=== PATIENT | female | born 1975 ===

== ENCOUNTER 2016-09-22 09:00 | Observation (INO) | payer BC, MEDICAID ==
[2016-09-22 09:01] VITALS: BMI 21.2
[2016-09-22] MEDS ORDERED: Sodium Chloride 0.9% 1,000 ML IV ONE (09:39)
[2016-09-22] MEDS ORDERED: Sodium Chloride 0.9% 1,000 ML ONE (09:42)
[2016-09-22] MEDS ORDERED: Morphine 4 MG/ML VIAL ONE ×2 (09:42→15:27)
--- NOTE | 2016-09-22 09:42 | C.PDOC ---
History Of Present Illness 41 y/o female presents to ED right c/o right flank pain, radiating to RLQ abdomen, for 3 days. Patient states that pain was much more severe when she woke up this morning, and now associated with nausea and vomiting. Denies any history of similar symptoms in the past. Denies fever, diarrhea, travel, or trauma. Denies GI bleeding. Time Seen by Provider: 09/22/16 09:38 Chief Complaint (Nursing): Back Pain History Per: Patient History/Exam Limitations: no limitations Onset/Duration Of Symptoms: Days Current Symptoms Are (Timing): Worse Quality Of Discomfort: "Pain" Previous Symptoms: None Associated Symptoms: None Recent travel outside of the [place]: No Past Medical History Reviewed: Historical Data, Nursing Documentation, Vital Signs Vital Signs: Last Vital Signs Temp 98.3 F 09/22/16 15:24 Pulse 71 09/22/16 15:24 Resp 20 09/22/16 15:24 BP 105/63 09/22/16 15:24 Pulse Ox 100 09/22/16 15:24 - Medical History PMH: Anemia, Asthma, Colonic Polyps, Gastritis, Gastrointestinal Ulcer, Gall Bladder Disease, Migraine Surgical History: Cholecystectomy, Endoscopy, (x4) - [facility] Procedures CLOSED ENDOSCOPIC BIOPSY OF LARGE INTESTINE (08/18/12) ESOPHAGOGASTRODUODENOSCOPY [EGD] W/CLOSED BIOPSY (08/31/14) PACKED CELL TRANSFUSION (08/18/12) PERCUTANEOUS ABDOMINAL DRAINAGE (10/22/14) REPAIR ABDOMEN SUBCUTANEOUS TISSUE AND FASCIA, OPEN APPROACH (02/17/15) Family History: States: Unknown Family Hx - Social History Hx Tobacco Use: No Hx Alcohol Use: No Hx Substance Use: No - Immunization History Hx Tetanus Toxoid Vaccination: No Hx Influenza Vaccination: No Hx Pneumococcal Vaccination: No Review Of Systems Except As Marked, All Systems Reviewed And Found Negative. Constitutional: Negative for: Fever, Chills Cardiovascular: Negative for: Chest Pain Respiratory: Negative for: Cough, Shortness of Breath Gastrointestinal: Positive for: Nausea, Vomiting, Abdominal Pain (right flank). Negative for: Diarrhea Genitourinary: Negative for: Dysuria, Hematuria Skin: Negative for: Rash Physical Exam - Physical Exam Appears: Non-toxic, No Acute Distress Skin: Normal Color, Warm, Dry Head: Atraumatic, Normacephalic Oral Mucosa: Moist Neck: Supple Chest: Symmetrical Cardiovascular: Rhythm Regular, No Murmur Respiratory: Normal Breath Sounds, No Rales, No Rhonchi, No Wheezing Gastrointestinal/Abdominal: Soft, No Tenderness, No Distention, No Guarding Back: CVA Tenderness (moderate, right sided) Extremity: Normal ROM Neurological/Psych: Oriented x3, Normal Speech, Normal Cognition ED Course And Treatment - Laboratory Results Result Diagrams: 09/22/16 09:46 09/22/16 09:46 ED OBSERVATION Discharge: Yes Date of observation admission: 09/22/16 Time of observation admission: 13:00 - Observation admission statement Patient is being placed in observation because:: abdominal pain, vomiting - Goals of Observation Goals of observation are:: observing and treatment for abdominal pain and vomiting - Progress Note Progress Note: At 1300, the patient reports that the pain has improved but still has nausea. Reglan ordered. 1500 the patient reports that the pain has returned. Morphine 4mg given. The results were discussed with the patient about the anemia and hypokalemia. Patient was instructed to stay in the hospital for possible transfusion but refuses admission at this time. 09/22/16 16:10 On re-exam, the patient reports improvement of symptoms. Lungs are CTA, heart is RRR, abdomen is soft, non-tender and patient is tolerating PO well. Ambulatory in the ED with steady gait. Follow up with the medical doctor within 1-2 days. Return if worsened. - PA / HEALTH AND WELLNESS INSTRUCTOR / Resident Statement MD/DO has reviewed & agrees with the documentation as recorded. - Scribe Statement The provider has reviewed the documentation as recorded by the Kory Damon All medical record entries made by the Kory were at my direction and personally dictated by me. I have reviewed the chart and agree that the record accurately reflects my personal performance of the history, physical exam, medical decision making, and the department course for this patient. I have also personally directed, reviewed, and agree with the discharge instructions and disposition.
[2016-09-22 09:52] LABS: BASO # 0.1 K/uL (0.0-0.2); BASO % 0.8 % (0.0-2.0); EOS % 0.4 % (0.0-4.0); HEMATOCRIT 27.1 % (34.0-47.0); LYMPH # 1.5 K/uL (1.0-4.3); LYMPH % 20.8 % (20.0-40.0); MEAN CORPUSCULAR HEMOGLOBIN 15.6 pg (27.0-31.0); MEAN CORPUSCULAR HGB CONC 27.8 g/dL (33.0-37.0); MEAN PLATELET VOLUME 8.5 fL (7.2-11.7); MONO # 0.3 K/uL (0.0-0.8); MONO % 3.6 % (0.0-10.0); NRBC % 0.1 % (0.0-2.0); RED CELL DISTRIBUTION WIDTH 24.2 % (11.5-14.5); WHITE BLOOD COUNT 7.2 K/uL (4.8-10.8)
[2016-09-22 10:00] LABS: MEAN CELL VOLUME 56.2 fL (81.0-99.0)
[2016-09-22 10:03] LABS: CHLORIDE 102 mmol/L (98-107); POTASSIUM 3.1 mmol/L (3.6-5.2); SODIUM 141 mmol/L (132-148)
[2016-09-22 10:05] LABS: ALB/GLOB RATIO 1.3 (1.0-2.1); ALKALINE PHOSPHATASE 114 U/L (38-126); AST/SGOT 23 U/L (14-36); BILIRUBIN,TOTAL 0.9 mg/dL (0.2-1.3); BLOOD UREA NITROGEN 10 mg/dL (7-17); CARBON DIOXIDE 26 mmol/L (22-30); GFR AFRICAN-AMERICAN > 60; TOTAL PROTEIN 7.6 g/dL (6.3-8.3)
[2016-09-22 10:06] LABS: ALT/SGPT 14 U/L (9-52); CALCIUM 8.9 mg/dl (8.6-10.4); GLUCOSE,RANDOM 99 mg/dL (65-105)
[2016-09-22 10:45] VITALS: O2SAT 100
[2016-09-22 12:32] LABS: RBC URINE 303 /hpf (0-3); URINE BILIRUBIN NEGATIVE (NEGATIVE); URINE BLOOD 3+ (NEGATIVE); URINE COLOR Yellow (YELLOW); URINE GLUCOSE (UA) NORMAL (Normal); URINE KETONE 2+ mg/dL (NEGATIVE); URINE PROTEIN 1+ mg/dL (NEGATIVE); URINE UROBILINOGEN NORMAL mg/dL (0.2-1.0); WBC URINE 14 /hpf (0-5)
[2016-09-22 12:35] LABS: URINE LEUKOCYTE ESTERASE 1+ Leu/uL (Negative)
--- NOTE | 2016-09-22 13:53 | CT ---
PROCEDURE: CT Abdomen and Pelvis without Oral or IV contrast. HISTORY: RT FLANK PAIN , R/O STONE COMPARISON: CT abdomen and pelvis with contrast performed 11/25/15 TECHNIQUE: Contiguous axial images of the abdomen and pelvis. No oral or IV contrast administered. Coronal and Sagittal reformats generated and reviewed. Radiation dose: Total exam DLP = 273.27 mGy-cm. This CT exam was performed using one or more of the following dose reduction techniques: Automated exposure control, adjustment of the mA and/or kV according to patient size, and/or use of iterative reconstruction technique. FINDINGS: There is limited evaluation of the solid organs without the administration of IV contrast. LOWER THORAX: No visible consolidation, pleural effusion, or pneumothorax. LIVER: Hepatomegaly. GALLBLADDER AND BILE DUCTS: Cholecystectomy clips. PANCREAS: Limited visualization. Grossly unremarkable unenhanced appearance. SPLEEN: Unremarkable unenhanced appearance. ADRENALS: Unremarkable unenhanced appearance. KIDNEYS AND URETERS: No hydronephrosis or obstructing renal calculus. 7 mm hyperdense left midpole renal lesion. Nonobstructing 3 mm and 2 mm left renal calculi. Nonobstructing 2 mm right renal calculus. BLADDER: Under distention of the urinary bladder limits evaluation. REPRODUCTIVE: Uterus is present. APPENDIX: No secondary signs of acute appendicitis. BOWEL: Postsurgical gastric changes consistent with gastric bypass. Lack of oral contrast limits evaluation for bowel pathology. Bowel loops appear within normal limits of caliber without evidence of obstruction. Anastomotic bowel suture material in the left abdomen. PERITONEUM: No significant free fluid. No definite free air. LYMPH NODES: No bulky lymphadenopathy identified. VASCULATURE: Limited visualization. Grossly unremarkable unenhanced appearance of the aorta. BONES: No acute osseous abnormality is detected. OTHER FINDINGS: None. IMPRESSION: Limited study. Hepatomegaly. Cholecystectomy. Evidence of prior gastric surgery consistent with gastric bypass. Suture material involving bowel in a left abdomen. 7 mm hyperdense left midpole renal lesion, indeterminate. Suggest renal ultrasound for further evaluation if indicated. Nonobstructing 3 mm and 2 mm left renal calculi. 2 mm nonobstructing right renal calculus. No hydronephrosis.
[2016-09-22 15:25] VITALS: RESP 20
[2016-09-22 16:38] VITALS: BP 104/65; PULSE 75; TEMP 98.6
== END 2016-09-22 16:12 | disposition home or self-care (01) ==
LOC: C.ER 09:00 → C.9OBSV 12:44
PROVIDERS: ADMIT Emergency Medicine; ATTEND Emergency Medicine
DX: R10.31 Right lower quadrant pain (principal); R11.10 Vomiting, unspecified; Z86.010 Personal history of colon polyps
CPT/HCPCS: 74176; 80053; 81001; 83690; 84703; 85025; 96360; 96374; G0378; J1885; J2270; J2405; J2765; J3480; J7040

== ENCOUNTER 2016-09-24 15:16 | Inpatient (IN) | payer BC ==
[2016-09-24 15:17] VITALS: BMI 21.2
[2016-09-24] MEDS ORDERED: Sodium Chloride 0.9% 1,000 ML IV ONE ×2 (16:01→19:48)
[2016-09-24 16:07] LABS: BASO # 0.1 K/uL (0.0-0.2); HEMATOCRIT 24.6 % (34.0-47.0); LYMPH # 2.2 K/uL (1.0-4.3); MEAN PLATELET VOLUME 8.6 fL (7.2-11.7); MONO # 0.4 K/uL (0.0-0.8)
[2016-09-24 16:19] LABS: CHLORIDE 105 mmol/L (98-107); SODIUM 140 mmol/L (132-148)
[2016-09-24 16:20] LABS: POTASSIUM 3.5 mmol/L (3.6-5.2)
[2016-09-24 16:22] LABS: ALB/GLOB RATIO 1.4 (1.0-2.1); ALKALINE PHOSPHATASE 92 U/L (38-126); ALT/SGPT 14 U/L (9-52); AST/SGOT 23 U/L (14-36); BILIRUBIN,TOTAL 0.7 mg/dL (0.2-1.3); BLOOD UREA NITROGEN 10 mg/dL (7-17); CALCIUM 8.7 mg/dl (8.6-10.4); CARBON DIOXIDE 24 mmol/L (22-30); GFR AFRICAN-AMERICAN > 60; GLUCOSE,RANDOM 88 mg/dL (65-105); TOTAL PROTEIN 7.3 g/dL (6.3-8.3)
[2016-09-24 16:29] LABS: RBC URINE 13 /hpf (0-3); URINE BACTERIA RARE (<OCC); URINE BILIRUBIN NEGATIVE (NEGATIVE); URINE BLOOD 2+ (NEGATIVE); URINE COLOR Yellow (YELLOW); URINE GLUCOSE (UA) NORMAL (Normal); URINE KETONE NEGATIVE (NEGATIVE); URINE LEUKOCYTE ESTERASE TRACE Leu/uL (Negative); URINE PROTEIN NEGATIVE (NEGATIVE); WBC URINE 2 /hpf (0-5)
[2016-09-24] MEDS ORDERED: Sodium Chloride 0.9% 1,000 ML ONE (16:31)
[2016-09-24 16:39] LABS: BASO % 1.1 % (0.0-2.0); EOS # 0.2 K/uL (0.0-0.7); EOS % 3.1 % (0.0-4.0); LYMPH % 45.1 % (20.0-40.0); MEAN CELL VOLUME 57.1 fL (81.0-99.0); MEAN CORPUSCULAR HEMOGLOBIN 15.7 pg (27.0-31.0); MEAN CORPUSCULAR HGB CONC 27.5 g/dL (33.0-37.0); MONO % 8.1 % (0.0-10.0); NRBC % 0.4 % (0.0-2.0); RED CELL DISTRIBUTION WIDTH 24.3 % (11.5-14.5); WHITE BLOOD COUNT 4.9 K/uL (4.8-10.8)
--- NOTE | 2016-09-24 17:05 | C.PDOC ---
History Of Present Illness 41-year-old female, presents to the emergency department with complaints of weakness and feeling tired. Patient was seen in ED two days ago with same complaint, and her Hgb was found to be 7.5; Patient refused admission and stated she will f/u with her PMD. Pt seen in Dr Loyola office today, and continues to feel generalized weakness, resulting in her being sent back to ED for evaluation. Patient had a CT done two days ago. Denies nausea, vomiting, symptoms, change in bowel habits, or any other associated symptoms. No other complaints at this time. Pt has a Hx of transfusions in the past. Chief Complaint (Nursing): Abdominal Pain History Per: Patient History/Exam Limitations: no limitations Onset/Duration Of Symptoms: Days Current Symptoms Are (Timing): Still Present Past Medical History Reviewed: Historical Data, Nursing Documentation, Vital Signs Vital Signs: Last Vital Signs Temp 98.3 F 09/24/16 15:23 Pulse 80 09/24/16 15:23 Resp 16 09/24/16 15:23 BP 110/74 09/24/16 15:23 Pulse Ox 96 09/24/16 17:46 - Medical History PMH: Anemia, Asthma, Colonic Polyps, Gastritis, Gastrointestinal Ulcer, Gall Bladder Disease, Migraine Denies: Chronic Kidney Disease Surgical History: Cholecystectomy, Endoscopy, (x4) - [facility] Procedures CLOSED ENDOSCOPIC BIOPSY OF LARGE INTESTINE (08/18/12) ESOPHAGOGASTRODUODENOSCOPY [EGD] W/CLOSED BIOPSY (08/31/14) PACKED CELL TRANSFUSION (08/18/12) PERCUTANEOUS ABDOMINAL DRAINAGE (10/22/14) REPAIR ABDOMEN SUBCUTANEOUS TISSUE AND FASCIA, OPEN APPROACH (02/17/15) Family History: States: No Known Family Hx - Social History Hx Tobacco Use: No Hx Alcohol Use: No Hx Substance Use: No - Immunization History Hx Tetanus Toxoid Vaccination: No Hx Influenza Vaccination: No Hx Pneumococcal Vaccination: No Review Of Systems Except As Marked, All Systems Reviewed And Found Negative. Constitutional: Positive for: Weakness. Negative for: Fever, Chills Genitourinary: Negative for: Dysuria, Frequency, Hematuria, Vaginal Discharge, Vaginal Bleeding Musculoskeletal: Negative for: Back Pain Neurological: Negative for: Headache, Dizziness Physical Exam - Physical Exam Appears: Non-toxic, No Acute Distress Skin: Normal Color, Warm, Dry, No Rash Head: Atraumatic, Normacephalic Eye(s): bilateral: Normal Inspection, PERRL, EOMI Nose: Normal Oral Mucosa: Moist Lips: Normal Appearing Neck: Normal ROM Cardiovascular: Rhythm Regular Respiratory: Normal Breath Sounds, No Accessory Muscle Use Gastrointestinal/Abdominal: Soft, No Tenderness Back: CVA Tenderness (B/L R>L) Extremity: Normal ROM Neurological/Psych: Oriented x3 ED Course And Treatment - Laboratory Results Result Diagrams: 09/24/16 15:56 09/24/16 15:56 O2 Sat by Pulse Oximetry: 96 Disposition - Disposition Disposition Time: 16:45 Condition: STABLE - Clinical Impression Clinical Impression: Anemia - Scribe Statement The provider has reviewed the documentation as recorded by the Scribe (Nadeem Richards) All medical record entries made by the Scribe were at my direction and personally dictated by me. I have reviewed the chart and agree that the record accurately reflects my personal performance of the history, physical exam, medical decision making, and the department course for this patient. I have also personally directed, reviewed, and agree with the discharge instructions and disposition.
[2016-09-24] MEDS ORDERED: Morphine 4 MG/ML VIAL IV STA (17:28)
--- NOTE | 2016-09-24 18:40 | CP.PCM.HP ---
<Shelley Donis - Last Filed: 09/24/16 19:41> History of Present Illness - History of Present Illness History of Present Illness: CC: "Lower back pain on the right, sent by Dr. Leon" HPI: 41-year-old female, presents to the emergency department with complaints of weakness and feeling tired. Patient was seen in ED two days ago with same complaint, and her Hgb was found to be 7.5; Patient refused admission and stated she will f/u with her PMD. Pt seen in Dr Loyola office today, and he told her to come back to the ED for evaluation. She continues to feel generalized weakness. Patient had a CT done two days ago revealed nephrolithiasis without hydronephrosis or obstruction. She stated she has had flank pain and R lower back pain since last Wednesday. She took tramadol to help with the pain. She denies urinary complains or blood in the urine but states she has been menstruating so it is difficult to tell. Denies fever, chills, nausea, vomiting, symptoms, change in bowel habits, or any other associated symptoms. Pt has a Hx of transfusions in the past due to her "GI probs". PMHx: Anemia, Asthma, Gastritis, Gastrointestinal Ulcer, Gall Bladder Disease, Migraine PSHx: cholecystectomy, gastric bypass, ventral hernia, x4 Meds: Xanax, Nexium, tramadol, tylenol Allergies: NKDA Social: denies tobacco/etoh/drugs Famhx: non-contributory PMD: Edward GI: Zia Present on Admission - Present on Admission Any Indicators Present on Admission: No Review of Systems - Constitutional Constitutional: absent: Chills, Fever - EENT Eyes: absent: Blurred Vision, Change in Vision - Cardiovascular Cardiovascular: absent: Chest Pain, Chest Pain at Rest, Palpitations, Syncope - Respiratory Respiratory: absent: Cough, Dyspnea, Dyspnea on Exertion - Gastrointestinal Gastrointestinal: absent: Abdominal Pain, Constipation, Diarrhea, Nausea, Vomiting - Genitourinary Genitourinary: Flank Pain, Voiding Freq/Small Amts. absent: Change in Urinary Stream, Difficulty Urinating, Hematuria, Pyuria, Urinary Incontinence, Bladder Distension - Musculoskeletal Musculoskeletal: absent: Numbness, Tingling - Neurological Neurological: absent: Headaches, Tingling, Weakness Past Patient History - Infectious Disease Hx of Infectious Diseases: None - Past Medical History & Family History Past Medical History?: Yes - Past Social History Smoking Status: Never Smoked - CARDIAC Hx Cardiac Disorders: No - PULMONARY Hx Asthma: Yes - NEUROLOGICAL Hx Migraine: Yes - HEENT Hx HEENT Problems: No - RENAL Hx Chronic Kidney Disease: No - ENDOCRINE/METABOLIC Hx Endocrine Disorders: No - HEMATOLOGICAL/ONCOLOGICAL Hx Anemia: Yes - INTEGUMENTARY Hx Dermatological Problems: No - MUSCULOSKELETAL/RHEUMATOLOGICAL Hx Musculoskeletal Disorders: No Hx Falls: No - GASTROINTESTINAL Hx Gall Bladder Disease: Yes Hx Gastritis: Yes - GENITOURINARY/GYNECOLOGICAL Hx Genitourinary Disorders: No - PSYCHIATRIC Hx Substance Use: No - SURGICAL HISTORY Hx Cholecystectomy: Yes - ANESTHESIA Hx Anesthesia: Yes Hx Anesthesia Reactions: No Hx Malignant Hyperthermia: No Meds Allergies/Adverse Reactions: Allergies Allergy/AdvReac Type Severity Reaction Status Date / Time No Known Allergies Allergy Verified 09/22/16 09:05 Physical Exam - Constitutional Appears: Non-toxic, No Acute Distress - Head Exam Head Exam: ATRAUMATIC, NORMAL INSPECTION - Eye Exam Eye Exam: EOMI, Normal appearance, PERRL Pupil Exam: NORMAL ACCOMODATION Additional comments: Pallor - ENT Exam ENT Exam: Mucous Membranes Moist - Respiratory Exam Respiratory Exam: Clear to Auscultation Bilateral, NORMAL BREATHING PATTERN. absent: Accessory Muscle Use, Rhonchi, Wheezes, Respiratory Distress, Stridor - Cardiovascular Exam Cardiovascular Exam: REGULAR RHYTHM, +S1, +S2 - GI/Abdominal Exam GI & Abdominal Exam: Normal Bowel Sounds, Soft. absent: Distended, Firm, Guarding, Tenderness - Extremities Exam Extremities exam: Positive for: normal inspection. Negative for: calf tenderness, pedal edema - Back Exam Back exam: CVA tenderness (R), NORMAL INSPECTION. absent: CVA tenderness (L), paraspinal tenderness - Neurological Exam Neurological exam: Alert, Normal Gait, Oriented x3 - Psychiatric Exam Psychiatric exam: Normal Affect, Normal Mood - Skin Skin Exam: Dry, Intact, Normal Color, Warm Results - Vital Signs Recent Vital Signs: Last Vital Signs Temp 98.3 F 09/24/16 15:23 Pulse 80 09/24/16 15:23 Resp 16 09/24/16 15:23 BP 110/74 09/24/16 15:23 Pulse Ox 96 09/24/16 18:37 - Labs Result Diagrams: 09/24/16 15:56 09/24/16 15:56 Assessment & Plan - Assessment and Plan (Free Text) Assessment: Anemia Hbg 6.8 2 Units PRBC ordered consent signed and placed in chart Gi consulted, Dr. Lizarraga, help appreciated (as per request of Dr. Bennett) - patient has seen on prior admissions and oupatient MCV - 57.1 f/u anemia workup: iron studies, /, folate, retic count Nephrolithiasis BUN/CR wnl UA 2+ blood, 2urobil, 13 RBC 11SE f/u urine culture f/u blood culture Abd U/S 09/22 - 7 mm hyperdense left midpole renal lesion, suggest renal ultrasound. Nonobstructin 3mm and 2mm left renal calculi. 2 mm nonobstructing right renal calculus. no hydronephrosis Cipro 400 mg IVPB Q12 hours (started 09/24) Morphine 2mg IVP Q4 hours prn Hypokalemia K = 3.5 KCl 20meq PO x 1 dose Prophylaxis SCDS - Heparin 5,000 U SC Q8 Pepcid 20mg PO BID NS at 125 cc/hour Regular diet <Yuriy Barajas H - Last Filed: 09/25/16 07:28> Results - Vital Signs Recent Vital Signs: Last Vital Signs Temp 98.1 F 09/25/16 07:26 Pulse 72 09/25/16 07:26 Resp 20 09/25/16 07:26 BP 109/72 09/25/16 07:26 Pulse Ox 99 09/25/16 00:03 - Labs Result Diagrams: 09/24/16 15:56 09/24/16 15:56 Attending/Attestation - Attestation I have personally seen and examined this patient.: Yes I have fully participated in the care of the patient.: Yes I have reviewed all pertinent clinical information: Yes
[2016-09-24] MEDS ORDERED: Ciprofloxacin 400mg/200ml D5W 400 MG/200 ML BAG IVPB ONE (19:39)
[2016-09-24] MEDS: Ciprofloxacin 400mg/200ml D5W 400 MG/200 ML BAG IVPB SCH (19:44)
--- NOTE | 2016-09-25 07:28 | CP.PCM.CON ---
History of Present Illness - History of Present Illness History of Present Illness: PGY4 GI Fellow Consult Note Patient is a 41yo female with PMHx significant for gastric bypass surgery, PEG insertion and removal, multiple ventral hernia repairs, 4 C-sections, chronic anemia who presents to the ED with complaint of right lower back pain. Patient had sudden onset right lower back pain one week ago with gradual radiation to the right flank and RUQ. Pain was not reproducible with palpation or movement and did not seem to correlate with meals. She presented to the ED 2 days [facility] and CT A/P at that time was fairly unremarkable for etiology of her discomfort and was discharged home with Pepcid and Cipro. She continued to have discomfort despite using Tramadol, Tylenol and Naprosyn at home. She called her PCP who noted her anemia on lab work and given persistent pain/fatigue, recommended she go back to the ED. Presently, patient continues to complain of the same pain, generalized fatigue, decreased appetite and nausea. Has had episodes of loose stool in the days preceding admission but no BM since arrival to ED. Denies any hematochezia, melena, weight loss (in fact has had weight gain), fever or chills. Admits she is currently having her menstrual period but has never had symptoms like this associated with her periods in the past. PMHx: asthma, anemia, H pylori negative gastritis, PUD (per pt) PSHx: Cholecystectomy, PASTOR Gastric bypass, hernia repair, FHx: Discussed with patient and she denies any significant family history Social: Denies tobacco, EtOH or illicit drug use Endo: EGD - 08/25 - Gastritis, h pylori negative Colon - 03/27 - Poor prep, procedure aborted Review of Systems - Constitutional Constitutional: Anorexia. absent: Chills, Fever, Weight Loss - EENT Eyes: absent: Change in Vision Nose/Mouth/Throat: absent: Sore Throat - Cardiovascular Cardiovascular: absent: Chest Pain, Dyspnea, Palpitations - Respiratory Respiratory: absent: Cough, Dyspnea, Excessive Mucous Production - Gastrointestinal Gastrointestinal: Abdominal Pain, Bloating, Cramping, Diarrhea, Nausea. absent : Constipation, Dyspepsia, Dysphagia, Heartburn, Hematemesis, Hematochezia, Melena, Vomiting - Genitourinary Genitourinary: absent: Dysuria, Urinary Frequency, Urinary Urgency - Musculoskeletal Musculoskeletal: absent: Back Pain, Neck Pain - Integumentary Integumentary: absent: New Lesions, Rash - Neurological Neurological: absent: Dizziness, Numbness, Focal Weakness - Psychiatric Psychiatric: absent: Anxiety, Depression - Endocrine Endocrine: absent: Polydipsia, Polyphagia, Polyuria - Hematologic/Lymphatic Hematologic: absent: Easy Bleeding, Easy Bruising, Lymphadenopathy Past Patient History - Infectious Disease Hx of Infectious Diseases: None - Past Medical History & Family History Past Medical History?: Yes - Past Social History Smoking Status: Never Smoked - CARDIAC Hx Cardiac Disorders: No - PULMONARY Hx Respiratory Disorders: Yes Hx Asthma: Yes - NEUROLOGICAL Hx Neurological Disorder: Yes Hx Migraine: Yes - HEENT Hx HEENT Problems: No - RENAL Hx Chronic Kidney Disease: Yes Hx Kidney Stones: Yes - ENDOCRINE/METABOLIC Hx Endocrine Disorders: No - HEMATOLOGICAL/ONCOLOGICAL Hx Blood Disorders: Yes Hx Anemia: Yes - INTEGUMENTARY Hx Dermatological Problems: No - MUSCULOSKELETAL/RHEUMATOLOGICAL Hx Musculoskeletal Disorders: No Hx Falls: No - GASTROINTESTINAL Hx Gastrointestinal Disorders: Yes Hx Gall Bladder Disease: Yes Hx Gastritis: Yes - GENITOURINARY/GYNECOLOGICAL Hx Genitourinary Disorders: No - PSYCHIATRIC Hx Psychophysiologic Disorder: No Hx Substance Use: No - SURGICAL HISTORY Hx Surgeries: Yes Hx Cholecystectomy: Yes Hx Gastric Bypass Surgery: Yes - ANESTHESIA Hx Anesthesia: Yes Hx Anesthesia Reactions: No Hx Malignant Hyperthermia: No Has any member of the family had a problem w/ anesthesia?: No Meds Allergies/Adverse Reactions: Allergies Allergy/AdvReac Type Severity Reaction Status Date / Time No Known Allergies Allergy Verified 09/22/16 09:05 - Medications Medications: Current Medications Famotidine (Pepcid) 20 mg PO BID [facility] Heparin Sodium (Porcine) (Heparin) 5,000 units SC Q8 [facility] Last Admin: 09/25/16 05:42 Dose: Not Given Ciprofloxacin (Cipro 400mg/200ml Dsw) 400 mg in 200 mls @ 133 mls/hr IVPB Q12H [facility] Last Admin: 09/24/16 19:44 Dose: 133 mls/hr Morphine Sulfate (Morphine) 2 mg IVP Q4 PRN PRN Reason: Pain, severe (8-10) Last Admin: 09/25/16 03:36 Dose: 2 mg Ondansetron HCl (Zofran Inj) 4 mg IVP Q6 PRN PRN Reason: Nausea/Vomiting Last Admin: 09/24/16 23:50 Dose: 4 mg Pneumococcal Polyvalent Vaccine (Pneumovax 23 Vaccine) 0.5 ml IM .ONCE ONE Stop: 09/26/16 10:01 Potassium Chloride (K-Dur 20 Meq Er Tab) 20 meq PO DAILY AMAYA Physical Exam - Constitutional Appears: Non-toxic, No Acute Distress - Eye Exam Eye Exam: EOMI, PERRL - ENT Exam ENT Exam: Mucous Membranes Moist - Respiratory Exam Respiratory Exam: Clear to Auscultation Bilateral. absent: Rales, Rhonchi, Wheezes - Cardiovascular Exam Cardiovascular Exam: RRR, +S1, +S2 - GI/Abdominal Exam GI & Abdominal Exam: Normal Bowel Sounds, Soft, Tenderness (Mostly R flank). absent: Distended, Firm, Guarding, Organomegaly, Rigid - Extremities Exam Extremities exam: Positive for: normal inspection. Negative for: pedal edema - Neurological Exam Neurological exam: Alert, Oriented x3 - Psychiatric Exam Psychiatric exam: Anxious, Normal Affect Results - Vital Signs Recent Vital Signs: Last Vital Signs Temp 97.7 F 09/25/16 05:24 Pulse 67 09/25/16 05:24 Resp 20 09/25/16 05:24 BP 106/72 09/25/16 05:24 Pulse Ox 99 09/25/16 00:03 - Labs Result Diagrams: 09/24/16 15:56 09/24/16 15:56 Assessment & Plan - Assessment and Plan (Free Text) Assessment: Patient is a 41yo female with PMHx significant for gastric bypass surgery, PEG insertion and removal, multiple ventral hernia repairs, 4 C-sections, chronic anemia who presents to the ED with complaint of right lower back pain. -Right back/flank pain -Microcytic hypochromic anemia -S/P Shelley-en-Y gastric bypass -Hepatomegaly on CT Plan: -Suspect ongoing anemia is a result of prior bypass surgery, complicated by current menstrual period -Check Fe level, TIBC, Transferrin and Ferritin levels -Consider IV iron replacement with continuations regularly as outpatient if above abnormal as PO Fe may not be sufficient -CT A/P reviewed, hepatomegaly noted -Check autoimmune markers: GILES, AMA, SMA, LKM-Ab, IgG level -Check HCV Ab -Plan for EGD today; rule out recurrent PUD/anastamotic ulceration -Patient needs colonoscopy given poor prep on prior procedure, could consider performing inpatient if patient still here next week -Analgesia and antiemetics per primary service -Would consider discontinuing antibiotics in the absence of any overt infectious process and constitutional findings - Date & Time Date: 09/25/16 Time: 07:10
[2016-09-25] MEDS: Ciprofloxacin 400mg/200ml D5W 400 MG/200 ML BAG IVPB SCH ×2 (07:42→19:03)
[2016-09-25] MEDS: Pantoprazole 40 mg EC Tab PO SCH ×2 (07:52→08:00)
[2016-09-25] MEDS ORDERED: Potassium Chloride 20 mEq ER Tab PO SCH (10:00)
[2016-09-25] MEDS ORDERED: Ferric Sodium Gluconat Complex 62.5 mg/5 ml Vial IVPB STA (10:57)
[2016-09-25] MEDS ORDERED: Lidocaine Hydrochloride 5 ML INJ ONE (11:56)
[2016-09-25] MEDS ORDERED: Propofol 10 mg/ml Inj (20 ML) ONE (11:56)
[2016-09-25] MEDS ORDERED: Lactated Ringer's 500 ML IV ONE ×2 (12:02)
[2016-09-25] MEDS ORDERED: Lactated Ringer's 500 ML IV SCH (12:30)
[2016-09-25] MEDS ORDERED: Morphine 4 MG/ML VIAL IV ONE (13:05)
[2016-09-25] MEDS ORDERED: Pantoprazole 40 mg EC Tab PO ONE (13:30)
[2016-09-25 18:03] LABS: BASO # 0.1 K/uL (0.0-0.2); BASO % 0.8 % (0.0-2.0); EOS # 0.2 K/uL (0.0-0.7); EOS % 1.8 % (0.0-4.0); HEMATOCRIT 30.9 % (34.0-47.0); LYMPH # 1.1 K/uL (1.0-4.3); LYMPH % 10.9 % (20.0-40.0); MEAN CORPUSCULAR HGB CONC 29.9 g/dL (33.0-37.0); MEAN PLATELET VOLUME 8.4 fL (7.2-11.7); MONO # 0.3 K/uL (0.0-0.8); MONO % 3.1 % (0.0-10.0); NRBC % 0.1 % (0.0-2.0); RED CELL DISTRIBUTION WIDTH 32.1 % (11.5-14.5); RETIC% 1.7 % (0.5-1.5)
[2016-09-25 18:11] LABS: MEAN CELL VOLUME 63.8 fL (81.0-99.0)
[2016-09-25 18:16] LABS: CHLORIDE 104 mmol/L (98-107)
--- NOTE | 2016-09-25 18:16 | CP.PCM.PN ---
<Shelley Donis - Last Filed: 09/25/16 18:25> Subjective - Date & Time of Evaluation Date of Evaluation: 09/25/16 Time of Evaluation: 07:50 - Subjective Subjective: Patient seen and examined at bedside today. She reports the same pain in her flank and lower back area more on the Right side not relieved with morphine. She denies N/V and has not been able to eat anything. She denies SOB, chest pain , urinary complains. She denies fever and chills. Still reports being tired Objective - Vital Signs/Intake and Output Vital Signs (last 24 hours): Temp Pulse Resp BP Pulse Ox 98.1 F 82 20 104/67 100 09/25/16 16:00 09/25/16 16:00 09/25/16 16:00 09/25/16 16:00 09/25/16 16:00 Intake and Output: 09/25/16 09/25/16 06:59 18:59 Intake Total 2304 1125 Balance 2304 1125 - Medications Medications: Current Medications Ciprofloxacin (Cipro 400mg/200ml Dsw) 400 mg in 200 mls @ 133 mls/hr IVPB Q12H [facility] Last Admin: 09/25/16 07:42 Dose: 133 mls/hr Morphine Sulfate (Morphine) 2 mg IVP Q4 PRN PRN Reason: Pain, severe (8-10) Last Admin: 09/25/16 17:17 Dose: 2 mg Ondansetron HCl (Zofran Inj) 4 mg IVP Q6 PRN PRN Reason: Nausea/Vomiting Last Admin: 09/25/16 08:16 Dose: 4 mg Pantoprazole Sodium (Protonix Ec Tab) 40 mg PO ACB [facility] Last Admin: 09/25/16 08:00 Dose: Not Given Pneumococcal Polyvalent Vaccine (Pneumovax 23 Vaccine) 0.5 ml IM .ONCE ONE Stop: 09/26/16 10:01 Potassium Chloride (K-Dur 20 Meq Er Tab) 20 meq PO DAILY [facility] Last Admin: 09/25/16 14:10 Dose: 20 meq - Labs Labs: 09/25/16 17:52 - Constitutional Appears: Non-toxic, In Acute Distress - Head Exam Head Exam: ATRAUMATIC, NORMAL INSPECTION - Eye Exam Eye Exam: EOMI Pupil Exam: NORMAL ACCOMODATION - ENT Exam ENT Exam: Mucous Membranes Moist - Respiratory Exam Respiratory Exam: Accessory Muscle Use, Clear to Ausculation Bilateral, NORMAL BREATHING PATTERN. absent: Rales, Wheezes, Respiratory Distress - Cardiovascular Exam Cardiovascular Exam: REGULAR RHYTHM, +S1, +S2 - GI/Abdominal Exam GI & Abdominal Exam: Soft, Normal Bowel Sounds. absent: Distended, Firm, Guarding, Tenderness - Extremities Exam Extremities Exam: Normal Inspection. absent: Calf Tenderness, Pedal Edema - Back Exam Back Exam: CVA tenderness (R), NORMAL INSPECTION. absent: CVA tenderness (L) Additional comments: and flank - Neurological Exam Neurological Exam: Alert, Awake, CN II-XII Intact, Oriented x3 - Psychiatric Exam Psychiatric exam: Anxious, Normal Affect, Normal Mood - Skin Skin Exam: Dry, Intact, Normal Color, Warm Assessment and Plan - Assessment and Plan (Free Text) Assessment: Anemia Hbg 9.2 2 Units PRBC ordered and transfused Anemia consent signed and placed in chart Gi consulted, Dr. Lizarraga, help appreciated (as per request of Dr. Bennett) - patient has seen on prior admissions and oupatient MCV - 57.1 f/u anemia workup: iron studies, b/, folate, retic count labs done late today patient was taken to get EGD per GI Ferrlecit x one dose IV today f/u am labs Nephrolithiasis BUN/CR wnl UA 2+ blood, 2urobil, 13 RBC 11SE f/u urine culture f/u blood culture Abd U/S 09/22 - 7 mm hyperdense left midpole renal lesion, suggest renal ultrasound. Nonobstructin 3mm and 2mm left renal calculi. 2 mm nonobstructing right renal calculus. no hydronephrosis Cipro 400 mg IVPB Q12 hours (started 09/24) Morphine 2mg IVP Q4 hours prn Hypokalemia K = 3.4 KCl 20meq PO x 1 dose Prophylaxis SCDS - Heparin 5,000 U SC Q8 Pepcid 20mg PO BID NS at 125 cc/hour Regular diet <Yuriy Barajas H - Last Filed: 09/26/16 08:16> Objective - Vital Signs/Intake and Output Vital Signs (last 24 hours): Temp Pulse Resp BP Pulse Ox 98.5 F 60 20 113/74 98 09/26/16 08:01 09/26/16 08:01 09/26/16 08:01 09/26/16 08:01 09/26/16 08:01 Intake and Output: 09/26/16 09/26/16 06:59 18:59 Intake Total 790 Balance 790 - Medications Medications: Current Medications Hydromorphone HCl (Dilaudid) 0.5 mg IVP Q3 PRN PRN Reason: Pain, moderate (4-7) Last Admin: 09/26/16 06:30 Dose: 0.5 mg Ciprofloxacin (Cipro 400mg/200ml Dsw) 400 mg in 200 mls @ 133 mls/hr IVPB Q12H [facility] Last Admin: 09/26/16 06:15 Dose: 133 mls/hr Ondansetron HCl (Zofran Inj) 4 mg IVP Q6 PRN PRN Reason: Nausea/Vomiting Last Admin: 09/26/16 06:30 Dose: 4 mg Pantoprazole Sodium (Protonix Ec Tab) 40 mg PO ACB [facility] Last Admin: 09/25/16 08:00 Dose: Not Given Pneumococcal Polyvalent Vaccine (Pneumovax 23 Vaccine) 0.5 ml IM .ONCE ONE Stop: 09/26/16 10:01 - Labs Labs: 09/25/16 17:52 09/25/16 17:52 Attending/Attestation - Attestation I have personally seen and examined this patient.: Yes I have fully participated in the care of the patient.: Yes I have reviewed all pertinent clinical information, including history, physical exam and plan: Yes Notes (Text): Medical attending: Patient was seen and examined by me, agrees the above note by medical orderly. The patient had 2 units of PRBCs given overnight, later on in the morning she underwent EGD for further examination of her anemia. She also received IV Ferrlecit as well her MCV is very low. There is a history of gastric bypass, she also explains to us that she's had a very poor appetite recently Also as mentioned above she does have some very small renal calculi, were giving intravenous fluids as well as IV Cipro at this time. Thank you very much, Yuriy Barajas
[2016-09-25 18:17] LABS: POTASSIUM 3.4 mmol/L (3.6-5.2); SODIUM 135 mmol/L (132-148)
[2016-09-25 18:19] LABS: ALB/GLOB RATIO 1.2 (1.0-2.1); BILIRUBIN,TOTAL 1.9 mg/dL (0.2-1.3); CARBON DIOXIDE 19 mmol/L (22-30); GFR AFRICAN-AMERICAN > 60; TOTAL PROTEIN 6.1 g/dL (6.3-8.3)
[2016-09-25 18:20] LABS: ALKALINE PHOSPHATASE 78 U/L (38-126); ALT/SGPT 82 U/L (9-52); AST/SGOT 87 U/L (14-36); BLOOD UREA NITROGEN 10 mg/dL (7-17); CALCIUM 8.3 mg/dl (8.6-10.4); GLUCOSE,RANDOM 140 mg/dL (65-105); MAGNESIUM 1.6 mg/dL (1.6-2.3); PHOSPHOROUS 2.8 mg/dL (2.5-4.5)
[2016-09-25] MEDS ORDERED: Potassium Chloride 20 mEq/15 ml LIQ UD PO STA (18:22)
[2016-09-25 18:24] LABS: TRANSFERRIN 314.1 mg/dL (206-381)
[2016-09-25 18:25] LABS: IMMUNOGLOBULIN G 890.7 mg/dL (700.0-1600.0)
[2016-09-25 18:27] LABS: IRON 34 ug/dL (37-170)
[2016-09-25 19:23] LABS: FOLATE 14.2 ng/mL
[2016-09-25] MEDS: HYDROmorphone 0.5 mg/0.5 ml ISec IVP PRN (21:19)
[2016-09-26] MEDS: HYDROmorphone 0.5 mg/0.5 ml ISec IVP PRN ×6 (01:55→20:21)
[2016-09-26] MEDS: Ciprofloxacin 400mg/200ml D5W 400 MG/200 ML BAG IVPB SCH (06:15)
[2016-09-26] MEDS: Pantoprazole 40 mg EC Tab PO SCH (07:45)
[2016-09-26 08:15] LABS: CHLORIDE 103 mmol/L (98-107)
[2016-09-26 08:16] LABS: POTASSIUM 3.3 mmol/L (3.6-5.2); SODIUM 135 mmol/L (132-148)
[2016-09-26 08:18] LABS: CARBON DIOXIDE 25 mmol/L (22-30); GFR AFRICAN-AMERICAN > 60
[2016-09-26 08:19] LABS: ALKALINE PHOSPHATASE 90 U/L (38-126); ALT/SGPT 140 U/L (9-52); AST/SGOT 162 U/L (14-36); BILIRUBIN,DIRECT 0.3 mg/dL (0.0-0.4); BLOOD UREA NITROGEN 7 mg/dL (7-17); CALCIUM 8.1 mg/dl (8.6-10.4); GLUCOSE,RANDOM 93 mg/dL (65-105); TOTAL PROTEIN 5.5 g/dL (6.3-8.3)
--- NOTE | 2016-09-26 08:23 | CP.PCM.PN ---
<David Rosenbaum - Last Filed: 09/26/16 09:03> Subjective - Date & Time of Evaluation Date of Evaluation: 09/26/16 Time of Evaluation: 07:00 - Subjective Subjective: PGY4 GI Fellow Progress Note Patient seen and examined bedside this morning. The patient admits to feeling better today. Denies any nausea, vomiting. Abdominal pain improved. No events overnight. 12 system ROS performed and negative except where stated. Objective - Vital Signs/Intake and Output Vital Signs (last 24 hours): Temp Pulse Resp BP Pulse Ox 98.5 F 60 20 113/74 98 09/26/16 08:01 09/26/16 08:01 09/26/16 08:01 09/26/16 08:01 09/26/16 08:01 Intake and Output: 09/26/16 09/26/16 06:59 18:59 Intake Total 790 Balance 790 - Medications Medications: Current Medications Hydromorphone HCl (Dilaudid) 0.5 mg IVP Q3 PRN PRN Reason: Pain, moderate (4-7) Last Admin: 09/26/16 06:30 Dose: 0.5 mg Ciprofloxacin (Cipro 400mg/200ml Dsw) 400 mg in 200 mls @ 133 mls/hr IVPB Q12H [facility] Last Admin: 09/26/16 06:15 Dose: 133 mls/hr Ondansetron HCl (Zofran Inj) 4 mg IVP Q6 PRN PRN Reason: Nausea/Vomiting Last Admin: 09/26/16 06:30 Dose: 4 mg Pantoprazole Sodium (Protonix Ec Tab) 40 mg PO ACB [facility] Last Admin: 09/25/16 08:00 Dose: Not Given Pneumococcal Polyvalent Vaccine (Pneumovax 23 Vaccine) 0.5 ml IM .ONCE ONE Stop: 09/26/16 10:01 - Labs Labs: 09/25/16 17:52 09/25/16 17:52 - Constitutional Appears: Non-toxic, No Acute Distress - Eye Exam Eye Exam: EOMI, PERRL - ENT Exam ENT Exam: Mucous Membranes Moist - Respiratory Exam Respiratory Exam: Clear to Ausculation Bilateral - Cardiovascular Exam Cardiovascular Exam: RRR, +S1, +S2 - GI/Abdominal Exam GI & Abdominal Exam: Soft, Tenderness (minimal, RUQ), Normal Bowel Sounds. absent: Distended, Firm, Guarding, Rigid, Organomegaly - Extremities Exam Extremities Exam: Normal Inspection. absent: Pedal Edema - Neurological Exam Neurological Exam: Alert, Awake, Oriented x3 - Psychiatric Exam Psychiatric exam: Normal Affect, Normal Mood - Skin Skin Exam: Dry, Warm Assessment and Plan - Assessment and Plan (Free Text) Assessment: Patient is a 41yo female with PMHx significant for gastric bypass surgery, PEG insertion and removal, multiple ventral hernia repairs, 4 C-sections, chronic anemia who presents to the ED with complaint of right lower back pain. -Right back/flank pain -Microcytic hypochromic anemia -Nonbleeding, gastric anastamotic ulcer -S/P Shelley-en-Y gastric bypass -Hepatomegaly on CT Plan: -Suspect ongoing anemia is a result of prior bypass surgery, complicated by current menstrual period -Given patient's veyr low MCV/MCH/Fe level/Saturation would consider Hematology evaluation to rule out any other underlying causes for microcytic anemia -Recommend regular scheduled IV iron supplementation -Autoimmune markers pending: GILES, AMA, SMA, LKM-Ab -HCV Ab negative -Continue PPI therapy, 30 minutes before breakfast -Patient needs colonoscopy given poor prep on prior procedure, follow up as outpatient -Analgesia and antiemetics per primary service -Would discontinue antibiotics -Will sign off. Thank you for allowing us to participate in the care of your patient <Abram Pop - Last Filed: 09/26/16 09:26> Objective - Vital Signs/Intake and Output Vital Signs (last 24 hours): Temp Pulse Resp BP Pulse Ox 98.5 F 60 20 113/74 98 09/26/16 08:01 09/26/16 08:01 09/26/16 08:01 09/26/16 08:01 09/26/16 08:01 Intake and Output: 09/26/16 09/26/16 06:59 18:59 Intake Total 790 Balance 790 - Medications Medications: Current Medications Hydromorphone HCl (Dilaudid) 0.5 mg IVP Q3 PRN PRN Reason: Pain, moderate (4-7) Last Admin: 09/26/16 06:30 Dose: 0.5 mg Ciprofloxacin (Cipro 400mg/200ml Dsw) 400 mg in 200 mls @ 133 mls/hr IVPB Q12H [facility] Last Admin: 09/26/16 06:15 Dose: 133 mls/hr Ondansetron HCl (Zofran Inj) 4 mg IVP Q6 PRN PRN Reason: Nausea/Vomiting Last Admin: 09/26/16 06:30 Dose: 4 mg Pantoprazole Sodium (Protonix Ec Tab) 40 mg PO ACB [facility] Last Admin: 09/25/16 08:00 Dose: Not Given Pneumococcal Polyvalent Vaccine (Pneumovax 23 Vaccine) 0.5 ml IM .ONCE ONE Stop: 09/26/16 10:01 - Labs Labs: 09/25/16 17:52 09/26/16 07:51 Attending/Attestation - Attestation I have personally seen and examined this patient.: Yes I have fully participated in the care of the patient.: Yes I have reviewed all pertinent clinical information, including history, physical exam and plan: Yes Notes (Text): 09/26/16 09:23 41 year old female with h/o gastric bypass surgery, chronic iron deficiency anemia admitted with anemia, right flank and abdominal pain. 1. Iron deficiency anemia 2. Anastamotic ulcer Plan: -anemia likely multifacgtorial, related to bypass, ulcer -would consider elective hematology evaluation considering markedly low MCV -recommend outpatient colonoscopy -continue daily PPI -avoid NSAIDs -diet as tolerated -will sign off at this time
[2016-09-26] MEDS ORDERED: Potassium Chloride 20 mEq ER Tab PO ONE (09:49)
[2016-09-26] MEDS ORDERED: Pneumococcal 23-Valent Vaccine IM ONE (10:00)
[2016-09-26 13:52] LABS: BASO % 0.5 % (0.0-2.0); EOS # 0.2 K/uL (0.0-0.7); EOS % 2.7 % (0.0-4.0); HEMATOCRIT 30.5 % (34.0-47.0); LYMPH # 1.4 K/uL (1.0-4.3); MEAN CELL VOLUME 63.5 fL (81.0-99.0); MEAN CORPUSCULAR HEMOGLOBIN 18.9 pg (27.0-31.0); MEAN CORPUSCULAR HGB CONC 29.8 g/dL (33.0-37.0); MEAN PLATELET VOLUME 8.4 fL (7.2-11.7); MONO # 0.4 K/uL (0.0-0.8); MONO % 4.2 % (0.0-10.0); RED CELL DISTRIBUTION WIDTH 32.3 % (11.5-14.5); WHITE BLOOD COUNT 9.3 K/uL (4.8-10.8)
--- NOTE | 2016-09-26 15:36 | CP.PCM.PN ---
<Kimberly Gurrola DO - Last Filed: 09/26/16 15:33> Subjective - Date & Time of Evaluation Date of Evaluation: 09/26/16 Time of Evaluation: 09:25 - Subjective Subjective: PGY1 progress note for Dr. Barajas Patient seen and examined. Patient states she does not feel as weak as before. Patient with right sided abdominal pain. Patient did not eat breakfast this morning and states she has no appetite. Objective - Vital Signs/Intake and Output Vital Signs (last 24 hours): Temp Pulse Resp BP Pulse Ox 98.5 F 60 20 113/74 98 09/26/16 08:01 09/26/16 08:01 09/26/16 08:01 09/26/16 08:01 09/26/16 08:01 Intake and Output: 09/26/16 09/26/16 06:59 18:59 Intake Total 790 Balance 790 - Medications Medications: Current Medications Hydromorphone HCl (Dilaudid) 0.5 mg IVP Q3 PRN PRN Reason: Pain, moderate (4-7) Last Admin: 09/26/16 14:03 Dose: 0.5 mg Ondansetron HCl (Zofran Inj) 4 mg IVP Q6 PRN PRN Reason: Nausea/Vomiting Last Admin: 09/26/16 12:42 Dose: 4 mg Pantoprazole Sodium (Protonix Ec Tab) 40 mg PO ACB [facility] Last Admin: 09/26/16 07:45 Dose: 40 mg - Labs Labs: 09/26/16 13:46 09/26/16 07:51 - Constitutional Appears: No Acute Distress - Head Exam Head Exam: ATRAUMATIC, NORMOCEPHALIC - Eye Exam Eye Exam: EOMI - ENT Exam ENT Exam: Mucous Membranes Moist - Respiratory Exam Respiratory Exam: Clear to Ausculation Bilateral - Cardiovascular Exam Cardiovascular Exam: +S1, +S2 - GI/Abdominal Exam GI & Abdominal Exam: Soft, Tenderness (right sided), Normal Bowel Sounds - Extremities Exam Extremities Exam: absent: Pedal Edema - Neurological Exam Neurological Exam: Alert, Awake - Psychiatric Exam Psychiatric exam: Normal Affect - Skin Skin Exam: Warm Assessment and Plan - Assessment and Plan (Free Text) Assessment: Anemia Hbg 9.1, stable 2 Units PRBC ordered and transfused Anemia consent signed and placed in chart Gi consulted, Dr. Lizarraga, help appreciated (as per request of Dr. Bennett) - patient has seen on prior admissions and oupatient EGD 09/25: small anastamotic ulcer at site of gastric bypass per GI, pt will need outpt colonoscopy MCV - 57.1 f/u anemia workup: iron studies, , folate, retic count labs done late today patient was taken to get EGD per GI Ferrlecit x one dose IV today consider outpt IV iron infusions as patient on PPI therapy at home and may not be absorbing PO iron Nephrolithiasis BUN/CR wnl UA 2+ blood, 2urobil, 13 RBC 11SE urine culture negative blood culture negative Abd U/S 09/22 - 7 mm hyperdense left midpole renal lesion, suggest renal ultrasound. Nonobstructin 3mm and 2mm left renal calculi. 2 mm nonobstructing right renal calculus. no hydronephrosis Cipro 400 mg IVPB Q12 hours (started 09/24)- discontinued Morphine 2mg IVP Q4 hours prn Hypokalemia K = 3.4 KCl 20meq PO x 1 dose Prophylaxis SCDS - Heparin 5,000 U SC Q8 Pepcid 20mg PO BID NS at 125 cc/hour Regular diet- monitor for diet tolerance <Yuriy Barajas H - Last Filed: 09/26/16 16:19> Objective - Vital Signs/Intake and Output Vital Signs (last 24 hours): Temp Pulse Resp BP Pulse Ox 98.2 F 60 18 100/61 100 09/26/16 15:00 09/26/16 15:00 09/26/16 15:00 09/26/16 15:00 09/26/16 15:00 Intake and Output: 09/26/16 09/26/16 06:59 18:59 Intake Total 790 Balance 790 - Medications Medications: Current Medications Hydromorphone HCl (Dilaudid) 0.5 mg IVP Q3 PRN PRN Reason: Pain, moderate (4-7) Last Admin: 09/26/16 14:03 Dose: 0.5 mg Ondansetron HCl (Zofran Inj) 4 mg IVP Q6 PRN PRN Reason: Nausea/Vomiting Last Admin: 09/26/16 12:42 Dose: 4 mg Pantoprazole Sodium (Protonix Ec Tab) 40 mg PO ACB [facility] Last Admin: 09/26/16 07:45 Dose: 40 mg - Labs Labs: 09/26/16 13:46 09/26/16 07:51 Attending/Attestation - Attestation I have personally seen and examined this patient.: Yes I have fully participated in the care of the patient.: Yes I have reviewed all pertinent clinical information, including history, physical exam and plan: Yes
[2016-09-26] MEDS ORDERED: HYDROmorphone 0.5 mg/0.5 ml ISec IVP PRN (23:25)
[2016-09-26] MEDS: HYDROmorphone 1 mg/ml ISec IVP PRN (23:51)
[2016-09-27] MEDS: HYDROmorphone 1 mg/ml ISec IVP PRN ×5 (03:37→16:34)
--- NOTE | 2016-09-27 06:57 | CP.PCM.PN ---
Objective - Vital Signs/Intake and Output Vital Signs (last 24 hours): Temp Pulse Resp BP Pulse Ox 98.7 F 69 20 111/70 98 09/26/16 23:40 09/26/16 23:40 09/26/16 23:40 09/26/16 23:40 09/26/16 23:40 Intake and Output: 09/26/16 09/27/16 18:59 06:59 Intake Total 610 500 Output Total 600 Balance 610 -100 - Medications Medications: Current Medications Hydromorphone HCl (Dilaudid) 0.5 mg IVP Q3H PRN PRN Reason: Pain Last Admin: 09/27/16 06:42 Dose: 0.5 mg Ondansetron HCl (Zofran Inj) 4 mg IVP Q6 PRN PRN Reason: Nausea/Vomiting Last Admin: 09/27/16 06:42 Dose: 4 mg Pantoprazole Sodium (Protonix Ec Tab) 40 mg PO ACB [facility] Last Admin: 09/26/16 07:45 Dose: 40 mg - Labs Labs: 09/26/16 13:46 09/26/16 07:51 Assessment and Plan - Assessment and Plan (Free Text) Assessment: Anemia Hbg 9.1, stable 2 Units PRBC ordered and transfused Anemia consent signed and placed in chart Gi consulted, Dr. Lizarraga, help appreciated (as per request of Dr. Bennett) - patient has seen on prior admissions and oupatient EGD 09/25: small anastamotic ulcer at site of gastric bypass per GI, pt will need outpt colonoscopy MCV - 57.1 f/u anemia workup: iron studies, b/12, folate, retic count labs done late today patient was taken to get EGD per GI Ferrlecit x one dose IV today consider outpt IV iron infusions as patient on PPI therapy at home and may not be absorbing PO iron Nephrolithiasis BUN/CR wnl UA 2+ blood, 2urobil, 13 RBC 11SE urine culture negative blood culture negative Abd U/S 09/22 - 7 mm hyperdense left midpole renal lesion, suggest renal ultrasound. Nonobstructin 3mm and 2mm left renal calculi. 2 mm nonobstructing right renal calculus. no hydronephrosis Cipro 400 mg IVPB Q12 hours (started 09/24)- discontinued Morphine 2mg IVP Q4 hours prn Hypokalemia K = 3.4 KCl 20meq PO x 1 dose Prophylaxis SCDS - Heparin 5,000 U SC Q8 Pepcid 20mg PO BID NS at 125 cc/hour Regular diet- monitor for diet tolerance
[2016-09-27] MEDS: Pantoprazole 40 mg EC Tab PO SCH (07:30)
[2016-09-27 08:37] LABS: BASO % 0.4 % (0.0-2.0); EOS # 0.2 K/uL (0.0-0.7); HEMATOCRIT 29.3 % (34.0-47.0); LYMPH # 1.4 K/uL (1.0-4.3); LYMPH % 20.6 % (20.0-40.0); MEAN CELL VOLUME 63.6 fL (81.0-99.0); MEAN CORPUSCULAR HEMOGLOBIN 19.1 pg (27.0-31.0); MEAN PLATELET VOLUME 8.4 fL (7.2-11.7); MONO # 0.4 K/uL (0.0-0.8); MONO % 6.6 % (0.0-10.0); RED CELL DISTRIBUTION WIDTH 32.5 % (11.5-14.5); WHITE BLOOD COUNT 6.7 K/uL (4.8-10.8)
[2016-09-27 08:57] LABS: CHLORIDE 103 mmol/L (98-107); POTASSIUM 3.5 mmol/L (3.6-5.2); SODIUM 138 mmol/L (132-148)
[2016-09-27 09:00] LABS: ALB/GLOB RATIO 1.2 (1.0-2.1); ALKALINE PHOSPHATASE 112 U/L (38-126); ALT/SGPT 162 U/L (9-52); AST/SGOT 141 U/L (14-36); BLOOD UREA NITROGEN 13 mg/dL (7-17); CARBON DIOXIDE 27 mmol/L (22-30); GFR AFRICAN-AMERICAN > 60; GLUCOSE,RANDOM 89 mg/dL (65-105)
[2016-09-27 09:01] LABS: CALCIUM 8.4 mg/dl (8.6-10.4)
[2016-09-27 09:02] LABS: BILIRUBIN,TOTAL 0.8 mg/dL (0.2-1.3)
--- NOTE | 2016-09-27 09:20 | CP.PCM.PN ---
Objective - Vital Signs/Intake and Output Vital Signs (last 24 hours): Temp Pulse Resp BP Pulse Ox 98 F 69 20 103/63 100 09/27/16 08:00 09/27/16 08:00 09/27/16 08:00 09/27/16 08:00 09/27/16 08:00 Intake and Output: 09/27/16 09/27/16 06:59 18:59 Intake Total 500 Output Total 600 Balance -100 - Medications Medications: Current Medications Hydromorphone HCl (Dilaudid) 0.5 mg IVP Q3H PRN PRN Reason: Pain Last Admin: 09/27/16 06:42 Dose: 0.5 mg Ondansetron HCl (Zofran Inj) 4 mg IVP Q6 PRN PRN Reason: Nausea/Vomiting Last Admin: 09/27/16 06:42 Dose: 4 mg Pantoprazole Sodium (Protonix Ec Tab) 40 mg PO ACB [facility] Last Admin: 09/26/16 07:45 Dose: 40 mg - Labs Labs: 09/27/16 08:21 09/27/16 08:21 Assessment and Plan - Assessment and Plan (Free Text) Assessment: Anemia Hbg 9.1, stable 2 Units PRBC ordered and transfused Anemia consent signed and placed in chart Gi consulted, Dr. Lizarraga, help appreciated (as per request of Dr. Bennett) - patient has seen on prior admissions and oupatient EGD 09/25: small anastamotic ulcer at site of gastric bypass per GI, pt will need outpt colonoscopy MCV - 57.1 f/u anemia workup: iron studies, b/12, folate, retic count labs done late today patient was taken to get EGD per GI Ferrlecit x one dose IV today consider outpt IV iron infusions as patient on PPI therapy at home and may not be absorbing PO iron Nephrolithiasis BUN/CR wnl UA 2+ blood, 2urobil, 13 RBC 11SE urine culture negative blood culture negative Abd U/S 09/22 - 7 mm hyperdense left midpole renal lesion, suggest renal ultrasound. Nonobstructin 3mm and 2mm left renal calculi. 2 mm nonobstructing right renal calculus. no hydronephrosis Cipro 400 mg IVPB Q12 hours (started 09/24)- discontinued Morphine 2mg IVP Q4 hours prn Hypokalemia K = 3.4 KCl 20meq PO x 1 dose Prophylaxis SCDS - Heparin 5,000 U SC Q8 Pepcid 20mg PO BID NS at 125 cc/hour Regular diet- monitor for diet tolerance
[2016-09-27] MEDS ORDERED: Potassium Chloride 20 mEq ER Tab PO ONE (09:21)
[2016-09-27] MEDS ORDERED: POLYETHYLENE GLYCOL 3350 17 GM/Dose PACKET PO ONE ×2 (13:41→15:15)
--- NOTE | 2016-09-27 13:56 | CP.PCM.DIS ---
Provider - Provider Date of Admission: 09/24/16 17:27 Attending physician: Yuriy Barajas DO Primary care physician: Dr. Leon Consults: Dr. Lizarraga Time Spent in preparation of Discharge (in minutes): 45 Diagnosis - Discharge Diagnosis (1) Anemia Status: Acute Comment: To be considered for further evaluation with colonoscopy outpatient and hematology. Hospital Course - Lab Results Lab Results: Most Recent Lab Values WBC 6.7 K/uL (4.8-10.8) 09/27/16 08:21 RBC 4.60 Mil/uL (3.80-5.20) 09/27/16 08:21 Hgb 8.8 g/dL (11.0-16.0) L 09/27/16 08:21 Hct 29.3 % (34.0-47.0) L 09/27/16 08:21 MCV 63.6 fL (81.0-99.0) L 09/27/16 08:21 MCH 19.1 pg (27.0-31.0) L 09/27/16 08:21 MCHC 30.0 g/dL (33.0-37.0) L 09/27/16 08:21 RDW 32.5 % (11.5-14.5) H 09/27/16 08:21 Plt Count 444 K/uL (130-400) H 09/27/16 08:21 MPV 8.4 fL (7.2-11.7) 09/27/16 08:21 Neut % (Auto) 69.4 % (50.0-75.0) 09/27/16 08:21 Lymph % (Auto) 20.6 % (20.0-40.0) 09/27/16 08:21 Luce % (Auto) 6.6 % (0.0-10.0) 09/27/16 08:21 Eos % (Auto) 3.0 % (0.0-4.0) 09/27/16 08:21 Baso % (Auto) 0.4 % (0.0-2.0) 09/27/16 08:21 Neut # 4.7 K/uL (1.8-7.0) 09/27/16 08:21 Lymph # 1.4 K/uL (1.0-4.3) 09/27/16 08:21 Luce # 0.4 K/uL (0.0-0.8) 09/27/16 08:21 Eos # 0.2 K/uL (0.0-0.7) 09/27/16 08:21 Baso # 0.0 K/uL (0.0-0.2) 09/27/16 08:21 Differential Comment 09/26/16 13:46 Retic Count 1.7 % (0.5-1.5) H 09/25/16 17:52 Sodium 138 mmol/L (132-148) 09/27/16 08:21 Potassium 3.5 mmol/L (3.6-5.2) L 09/27/16 08:21 Chloride 103 mmol/L (98-107) 09/27/16 08:21 Carbon Dioxide 27 mmol/L (22-30) 09/27/16 08:21 Anion Gap 11 (10-20) 09/27/16 08:21 BUN 13 mg/dL (7-17) 09/27/16 08:21 Creatinine 0.5 MG/DL (0.7-1.2) L 09/27/16 08:21 Est GFR ( Amer) > 60 09/27/16 08:21 Est GFR (Non-Af Amer) > 60 09/27/16 08:21 Random Glucose 89 mg/dL (65-105) 09/27/16 08:21 Calcium 8.4 mg/dl (8.6-10.4) L 09/27/16 08:21 Phosphorus 2.8 mg/dL (2.5-4.5) 09/25/16 17:52 Magnesium 1.6 mg/dL (1.6-2.3) 09/25/16 17:52 Iron 34 ug/dL (37-170) L 09/25/16 17:52 TIBC 388 ug/dL (250-450) 09/25/16 17:52 % Saturation 9 (20-55) L 09/25/16 17:52 Transferrin 314.10 mg/dL (206-381) 09/25/16 17:52 Ferritin 23.2 ng/mL 09/25/16 17:52 Total Bilirubin 0.8 mg/dL (0.2-1.3) 09/27/16 08:21 Direct Bilirubin 0.3 mg/dL (0.0-0.4) 09/26/16 07:51 AST 141 U/L (14-36) H 09/27/16 08:21 ALT 162 U/L (9-52) H 09/27/16 08:21 Alkaline Phosphatase 112 U/L (38-126) 09/27/16 08:21 Lactate Dehydrogenase 477 U/L (313-618) 09/25/16 17:52 Total Protein 6.0 g/dL (6.3-8.3) L 09/27/16 08:21 Albumin 3.2 g/dL (3.5-5.0) L 09/27/16 08:21 Globulin 2.8 gm/dL (2.2-3.9) 09/27/16 08:21 Albumin/Globulin Ratio 1.2 (1.0-2.1) 09/27/16 08:21 Lipase 160 U/L (23-300) 09/24/16 15:56 Vitamin B12 254 pg/mL (239-931) 09/25/16 17:52 Folate 14.2 ng/mL 09/25/16 17:52 Urine Color Yellow (YELLOW) 09/24/16 15:56 Urine Clarity Hazy (Clear) 09/24/16 15:56 Urine pH 6.0 (5.0-8.0) 09/24/16 15:56 Ur Specific Superior 1.025 (1.003-1.030) 09/24/16 15:56 Urine Protein Negative mg/dL (NEGATIVE) 09/24/16 15:56 Urine Glucose (UA) Normal mg/dL (Normal) 09/24/16 15:56 Urine Ketones Negative mg/dL (NEGATIVE) 09/24/16 15:56 Urine Blood 2+ (NEGATIVE) H 09/24/16 15:56 Urine Nitrate Negative (NEGATIVE) 09/24/16 15:56 Urine Bilirubin Negative (NEGATIVE) 09/24/16 15:56 Urine Urobilinogen 2.0 mg/dL (0.2-1.0) H 09/24/16 15:56 Ur Leukocyte Esterase Trace Esteban/uL (Negative) 09/24/16 15:56 Urine WBC (Auto) 2 /hpf (0-5) 09/24/16 15:56 Urine RBC (Auto) 13 /hpf (0-3) H 09/24/16 15:56 Ur Squamous Epith Cells 11 /hpf (0-5) H 09/24/16 15:56 Urine Bacteria Rare (<OCC) 09/24/16 15:56 Urine HCG, Qual Negative (NEGATIVE) 09/25/16 09:45 IgG 890.7 mg/dL (700.0-1600.0) 09/25/16 17:52 Hepatitis C Antibody Negative (NEGATIVE) 09/25/16 17:52 Blood Type O POSITIVE 09/24/16 15:56 Antibody Screen Negative 09/24/16 15:56 - Hospital Course Hospital Course: As per admission documentation: HPI: 41-year-old female, presents to the emergency department with complaints of weakness and feeling tired. Patient was seen in ED two days ago with same complaint, and her Hgb was found to be 7.5; Patient refused admission and stated she will f/u with her PMD. Pt seen in Dr Loyola office today, and he told her to come back to the ED for evaluation. She continues to feel generalized weakness. Patient had a CT done two days ago revealed nephrolithiasis without hydronephrosis or obstruction. She stated she has had flank pain and R lower back pain since last Wednesday. She took tramadol to help with the pain. She denies urinary complains or blood in the urine but states she has been menstruating so it is difficult to tell. Denies fever, chills, nausea, vomiting, symptoms, change in bowel habits, or any other associated symptoms. Pt has a Hx of transfusions in the past due to her "GI probs". Patient was admitted for severe anemia, Hgb at 6.8. Patient was transfused 2U PRBC and was evaluated by GI, Dr. Pop. Patient underwent EGD and was found to have an ulcer at her gastrojejunal anatomosis. Patient's hgb remained stable and patient was able to tolerate PO. Patient was advised not to take NSAIDs for now and recommended an outpatient colonoscopy. Discharge Exam - Head Exam Head Exam: ATRAUMATIC, NORMOCEPHALIC - Eye Exam Eye Exam: EOMI, Normal appearance Pupil Exam: NORMAL ACCOMODATION - ENT Exam ENT Exam: Mucous Membranes Moist - Respiratory Exam Respiratory Exam: Clear to PA & Lateral, NORMAL BREATHING PATTERN, UNREMARKABLE. absent: Prolonged Expiratory Phase, Rales, Rhonchi, Wheezes, Respiratory Distress - Cardiovascular Exam Cardiovascular Exam: REGULAR RHYTHM, +S1, +S2 - GI/Abdominal Exam GI & Abdominal Exam: Normal Bowel Sounds, Soft, Unremarkable. absent: Distended , Firm, Tenderness - Neurological Exam Neurological exam: Alert, CN II-XII Intact, Oriented x3 - Psychiatric Exam Psychiatric exam: Normal Affect, Normal Mood - Skin Skin Exam: Dry, Intact, Normal Color, Warm Discharge Plan - Discharge Medications Prescriptions: Pantoprazole [Protonix EC Tab] 40 mg PO DAILY #30 ect - Follow Up Plan Condition: STABLE Disposition: HOME/ ROUTINE Additional Instructions: Please discharge patient home, as per Dr. Barajas. Patient is to continue taking Protonix at home as instructed. Patient is to followup with her PMD in 1 week. Patient will need an outpatient GI evaluation for colonoscopy. Patient is to avoid NSAIDs at this time. If symptoms worsen, please return to the hospital for further evaluation and treatment.
[2016-09-27 15:56] VITALS: BP 101/65; PULSE 59; RESP 19; TEMP 98.7; O2SAT 98
[2016-09-29 21:46] LABS: LKM-1 Ab (IgG) <=20.0 U (<=20.0)
== END 2016-09-27 18:59 | disposition home or self-care (01) | DRG 812 ==
LOC: C.ER 15:16 → C.9E 17:27 → C.3T 19:38
PROVIDERS: ADMIT Hospitalist; ATTEND Hospitalist
PROC: 0DB68ZX Excision of Stomach, Via Natural or Artificial Opening Endoscopic, Diagnostic (ICD-10-PCS; 2016-09-25)
PROC: 30233N1 Transfusion of Nonautologous Red Blood Cells into Peripheral Vein, Percutaneous Approach (ICD-10-PCS; principal; 2016-09-25 12:08)
DX: D50.9 Iron deficiency anemia, unspecified (principal); R16.0 Hepatomegaly, not elsewhere classified; K28.9 Gastrojejunal ulcer, unspecified as acute or chronic, without hemorrhage or perforation; J45.909 Unspecified asthma, uncomplicated; N20.0 Calculus of kidney; Z86.010 Personal history of colon polyps; Z90.49 Acquired absence of other specified parts of digestive tract; E87.6 Hypokalemia; Z98.84 Bariatric surgery status

== ENCOUNTER 2016-10-08 07:20 | Day surgery (SDC) | payer BC ==
[2016-10-08 08:12] VITALS: BMI 22.2
[2016-10-08 08:30] VITALS: TEMP 97.5
[2016-10-08] MEDS ORDERED: Propofol 10 mg/ml Inj (20 ML) ONE (10:29)
--- NOTE | 2016-10-08 10:47 | CP.SDSHP ---
Same Day Surgery H & P - History Proposed Procedure: colonoscopy Pre-Op Diagnosis: unexplained weight loss - Previous Medical/Surgical History Previous Surgical History: gastric bypass - Allergies Allergies: Allergies No Known Allergies Allergy (Verified 09/22/16 09:05) - Physical Exam General Appearance: NAD Vital Signs: Vital Signs 10/08/16 10/08/16 08:19 10:40 Temperature 97.5 F L 97.5 F L Pulse Rate 74 74 Respiratory 19 19 Rate Blood Pressure 125/79 125/79 O2 Sat by Pulse 98 98 Oximetry Mental Status: Alert & Oriented x3 Neuro: WNL Heart: WNL Lungs: WNL GI: WNL - {Optional Preform as Required} Abdomen: WNL - Impression Pt. Evaluated Today:Candidate for Anesthesia & Procedure: Yes - Date & Time Date: 10/08/16 Time: 10:47 Short Stay Discharge - Short Stay Discharge Admitting Diagnosis/Reason for Visit: ELEVATED CEA Disposition: HOME/ ROUTINE
[2016-10-08 11:48] VITALS: RESP 18
[2016-10-08 12:18] VITALS: BP 101/56; PULSE 77; O2SAT 99
== END 2016-10-08 12:10 | disposition home or self-care (01) ==
LOC: C.ENDO 07:20
PROVIDERS: ATTEND Internal Medicine Gastroenterology
DX: R97.0 Elevated carcinoembryonic antigen [CEA] (principal); R63.4 Abnormal weight loss; Z98.84 Bariatric surgery status; K64.0 First degree hemorrhoids
CPT/HCPCS: 45378; J2001; J2405; J2704

== ENCOUNTER 2016-10-08 16:59 | Emergency (ER) | payer BC ==
[2016-10-08 16:59] VITALS: BMI 22.2
[2016-10-08] MEDS ORDERED: Morphine 4 MG/ML VIAL ONE ×2 (17:30→18:49)
[2016-10-08 17:44] LABS: BASO # 0.1 K/uL (0.0-0.2); EOS # 0.1 K/uL (0.0-0.7); EOS % 1.4 % (0.0-4.0); HEMATOCRIT 33.4 % (34.0-47.0); LYMPH # 2.3 K/uL (1.0-4.3); LYMPH % 28.7 % (20.0-40.0); MEAN CELL VOLUME 64.6 fL (81.0-99.0); MEAN CORPUSCULAR HEMOGLOBIN 18.9 pg (27.0-31.0); MEAN CORPUSCULAR HGB CONC 29.2 g/dL (33.0-37.0); MEAN PLATELET VOLUME 8.9 fL (7.2-11.7); MONO # 0.5 K/uL (0.0-0.8); RED CELL DISTRIBUTION WIDTH 32.3 % (11.5-14.5); WHITE BLOOD COUNT 8.1 K/uL (4.8-10.8)
[2016-10-08 17:55] LABS: CHLORIDE 108 mmol/L (98-107)
[2016-10-08 17:56] LABS: POTASSIUM 3.5 mmol/L (3.6-5.2); SODIUM 144 mmol/L (132-148)
[2016-10-08 17:58] LABS: BILIRUBIN,TOTAL 1.2 mg/dL (0.2-1.3); CARBON DIOXIDE 22 mmol/L (22-30); GFR AFRICAN-AMERICAN > 60
[2016-10-08 17:59] LABS: ALB/GLOB RATIO 1.1 (1.0-2.1); ALKALINE PHOSPHATASE 107 U/L (38-126); ALT/SGPT 28 U/L (9-52); AST/SGOT 32 U/L (14-36); BLOOD UREA NITROGEN 10 mg/dL (7-17); CALCIUM 9.1 mg/dl (8.6-10.4); GLUCOSE,RANDOM 94 mg/dL (65-105); TOTAL PROTEIN 7.8 g/dL (6.3-8.3)
[2016-10-08 18:02] LABS: RBC URINE 13 /hpf (0-3); TRANSITIONAL EPITHIAL 1 /hpf (0-3); URINE BACTERIA RARE (<OCC); URINE BILIRUBIN NEGATIVE (NEGATIVE); URINE COLOR Yellow (YELLOW); URINE GLUCOSE (UA) 1+ mg/dL (Normal); URINE KETONE NEGATIVE (NEGATIVE); URINE LEUKOCYTE ESTERASE NEG Leu/uL (Negative); URINE PROTEIN 1+ mg/dL (NEGATIVE); WBC URINE 4 /hpf (0-5)
[2016-10-08 18:03] LABS: URINE BLOOD 2+ (NEGATIVE)
--- NOTE | 2016-10-08 18:30 | C.PDOC ---
History Of Present Illness 41 y/o female presents to the ED with complaints of right sided abdominal cramping for the past few hours, s/p colonoscopy. Discussed with Dr Romo at 1730, no biopsies taken, normal colonoscopy. Pain out of proportion to expected. Pt also complaining of right flank pain. Denies vomiting, diarrhea, fever or any other complaints. Time Seen by Provider: 10/08/16 17:31 Chief Complaint (Nursing): Back Pain History Per: Patient History/Exam Limitations: no limitations Onset/Duration Of Symptoms: Hrs Current Symptoms Are (Timing): Still Present Quality Of Discomfort: Cramping Severity: Mild Previous Symptoms: None Associated Symptoms: None Recent travel outside of the [place]: No Past Medical History Reviewed: Historical Data, Nursing Documentation, Vital Signs Vital Signs: Last Vital Signs Temp 99 F 10/08/16 18:43 Pulse 77 10/08/16 18:43 Resp 18 10/08/16 18:43 BP 114/78 10/08/16 18:43 Pulse Ox 99 10/08/16 19:17 - Medical History PMH: Gastritis, Gastrointestinal Ulcer, Gall Bladder Disease Surgical History: Cholecystectomy, Endoscopy, (x4) - [employer] Procedures CLOSED ENDOSCOPIC BIOPSY OF LARGE INTESTINE (08/18/12) ESOPHAGOGASTRODUODENOSCOPY [EGD] W/CLOSED BIOPSY (08/31/14) EXCISION OF STOMACH, ENDO, DIAGN (09/24/16) PACKED CELL TRANSFUSION (08/18/12) PERCUTANEOUS ABDOMINAL DRAINAGE (10/22/14) REPAIR ABDOMEN SUBCUTANEOUS TISSUE AND FASCIA, OPEN APPROACH (02/17/15) TRANSFUSE NONAUT RED BLOOD CELLS IN PERIPH VEIN, PERC (09/24/16) Family History: States: Unknown Family Hx - Social History Hx Tobacco Use: No Hx Alcohol Use: No Hx Substance Use: No - Immunization History Hx Tetanus Toxoid Vaccination: No Hx Influenza Vaccination: No Hx Pneumococcal Vaccination: No Review Of Systems Except As Marked, All Systems Reviewed And Found Negative. Constitutional: Negative for: Fever, Chills Gastrointestinal: Positive for: Abdominal Pain. Negative for: Vomiting, Diarrhea Genitourinary: Positive for: Other (right flank pain) Physical Exam - Physical Exam Appears: Non-toxic, Other (writhing, sobbing) Skin: Warm, Dry, No Rash Head: Atraumatic, Normacephalic Neck: Normal, Normal ROM, Supple Chest: Symmetrical Cardiovascular: Rhythm Regular, No Murmur Respiratory: Normal Breath Sounds, No Rales, No Rhonchi, No Wheezing Gastrointestinal/Abdominal: Normal Exam, Soft, No Tenderness Back: No CVA Tenderness Extremity: Normal ROM Neurological/Psych: Oriented x3, Normal Speech ED Course And Treatment - Laboratory Results Result Diagrams: 10/08/16 17:37 10/08/16 17:37 Lab Interpretation: Normal (ua neg.) Urine POC: Negative O2 Sat by Pulse Oximetry: 99 (room air) Pulse Ox Interpretation: Normal - CT Scan/US CT abdomen Other Rad Studies (CT/US): Read By Radiologist, Radiology Report Reviewed CT/US Interpretation: IMPRESSION: No definite free air. Limited visualization with prominence of the pancreatic head/ uncinate process of unclear significance ; underlying soft tissue mass cannot be excluded dedicated pancreatic protocol CT is recommended for further evaluation. Hepatomegaly. Cholecystectomy. Punctate nonobstructing bilateral renal calculi. Additional findings as above. Progress Note: Plan: CT abdomen, labs, UA, IV fluids, morphine, zofran. [facility] reviewed: 34 controlled Rx's from 7 prescribers, suspicious for drug seeking behavior Reevaluation Time: 19:09 Reassessment Condition: Improved - Physician Consult Information Outcome Of Conversation: d/w Dr. Lizarraga @ 1730 and 1910, ok to d/c home with neg w/u. Medical Decision Making Medical Decision Making: post-colonoscopy discomfort c/w usual colicky pain. pt w h/o dramatic presentations after procedures with normal w/u's. d/w Dr. Lizarraga- GI, ok to d/c home for opt f/u. [facility] with multiple prescribers for ? underlying chronic pain issues. Disposition Doctor Will See Patient In The: Office Counseled Patient/Family Regarding: Studies Performed, Diagnosis - Disposition Referrals: Milan Lizarraga MD [Staff Provider] - Disposition: HOME/ ROUTINE Disposition Time: 19:11 Condition: GOOD Additional Instructions: liquid diet for today Walking to help pass gas Abnormality of Pancreatic head should be further evaluated Follow-up with Dr. Lizarraga as needed. Seek a Chronic Pain specialist for your chronic pain med needs- your abnormal narcotics prescribing will be reported to [facility]. Instructions: Colonoscopy (ED) - Clinical Impression Clinical Impression: Status post colonoscopy, Pancreatic abnormality - Scribe Statement The provider has reviewed the documentation as recorded by the Scribe Michael Iyer Provider Attestation: All medical record entries made by the Earleneibe were at my direction and personally dictated by me. I have reviewed the chart and agree that the record accurately reflects my personal performance of the history, physical exam, medical decision making, and the department course for this patient. I have also personally directed, reviewed, and agree with the discharge instructions and disposition.
[2016-10-08 18:44] VITALS: BP 114/78; PULSE 77; RESP 18; TEMP 99
--- NOTE | 2016-10-08 18:48 | CT ---
PROCEDURE: CT Abdomen and Pelvis without Oral or IV contrast. HISTORY: R flank, s/p colonoscopy today, ? perf COMPARISON: CT abdomen and pelvis without oral or IV contrast performed 09/22/16 TECHNIQUE: Contiguous axial images of the abdomen and pelvis. No oral or IV contrast administered. Coronal and Sagittal reformats generated and reviewed. Radiation dose: Total exam DLP = 321.74 mGy-cm. This CT exam was performed using one or more of the following dose reduction techniques: Automated exposure control, adjustment of the mA and/or kV according to patient size, and/or use of iterative reconstruction technique. FINDINGS: There is limited evaluation of the solid organs without the administration of IV contrast. LOWER THORAX: No visible consolidation, pleural effusion, or pneumothorax. LIVER: Hepatomegaly. GALLBLADDER AND BILE DUCTS: Cholecystectomy. PANCREAS: Limited visualization with prominence of the pancreatic head/ uncinate process of unclear significance ; underlying soft tissue mass cannot be excluded SPLEEN: Unremarkable unenhanced appearance. ADRENALS: Unremarkable unenhanced appearance. KIDNEYS AND URETERS: No hydronephrosis or obstructing renal calculus. Punctate bilateral nonobstructing calculi. BLADDER: Compressed urinary bladder precludes adequate evaluation. REPRODUCTIVE: Uterus is present. APPENDIX: The presumed appendix appears within normal limits of caliber. No secondary signs of acute appendicitis. BOWEL: The stomach is nondistended. Status post gastric bypass. Lack of oral contrast limits evaluation for bowel pathology. The bowel loops appear within normal limits of caliber without evidence of intestinal obstruction. PERITONEUM: No significant free fluid. No definite free air. LYMPH NODES: No bulky lymphadenopathy identified. VASCULATURE: No aortic aneurysm. BONES: No acute osseous abnormality is detected. OTHER FINDINGS: None. IMPRESSION: No definite free air. Limited visualization with prominence of the pancreatic head/ uncinate process of unclear significance ; underlying soft tissue mass cannot be excluded dedicated pancreatic protocol CT is recommended for further evaluation. Hepatomegaly. Cholecystectomy. Punctate nonobstructing bilateral renal calculi. Additional findings as above.
[2016-10-08 19:12] VITALS: O2SAT 99
== END 2016-10-08 19:30 | disposition home or self-care (01) ==
LOC: C.ER 16:59
DX: K86.89 Other specified diseases of pancreas (principal); Z98.890 Other specified postprocedural states
CPT/HCPCS: 74176; 80053; 81001; 83690; 84702; 84703; 85025; 85610; 85730; 96374; 96375; 96376; 99284; J2270; J2405

== ENCOUNTER 2016-11-03 07:31 | Observation (INO) | payer BC ==
[2016-11-03 07:31] VITALS: BMI 22.2
[2016-11-03] MEDS ORDERED: Sodium Chloride 0.9% 1,000 ML IV ONE (08:00)
[2016-11-03] MEDS ORDERED: Sodium Chloride 0.9% 1,000 ML ONE (08:11)
--- NOTE | 2016-11-03 08:12 | C.PDOC ---
History Of Present Illness 41 yo F s/p gastric bypass, cholecystectomy and 4 c-sections, presents to the ER c/o sudden onset of nausea with sharp constant epigastric and R flank pain x2 days, associated with dry heaving. Denies CP, SOB, back pain, urinary symptoms, vomiting, diarrhea, fever, recent travel or any other complaints. PMD [facility] GI Venod Time Seen by Provider: 11/03/16 07:45 Chief Complaint (Nursing): GI Problem History Per: Patient History/Exam Limitations: no limitations Onset/Duration Of Symptoms: Days (2) Current Symptoms Are (Timing): Still Present Past Medical History Vital Signs: Last Vital Signs Temp 99 F 11/03/16 14:36 Pulse 68 11/03/16 14:36 Resp 18 11/03/16 14:36 BP 155/83 H 11/03/16 14:36 Pulse Ox 99 11/03/16 14:48 - Medical History PMH: Gastritis, Gastrointestinal Ulcer, Gall Bladder Disease Denies: Asthma, Chronic Kidney Disease Surgical History: Cholecystectomy, Endoscopy, (x4) - [email or web address] Procedures CLOSED ENDOSCOPIC BIOPSY OF LARGE INTESTINE (08/18/12) ESOPHAGOGASTRODUODENOSCOPY [EGD] W/CLOSED BIOPSY (08/31/14) EXCISION OF STOMACH, ENDO, DIAGN (09/24/16) PACKED CELL TRANSFUSION (08/18/12) PERCUTANEOUS ABDOMINAL DRAINAGE (10/22/14) REPAIR ABDOMEN SUBCUTANEOUS TISSUE AND FASCIA, OPEN APPROACH (02/17/15) TRANSFUSE NONAUT RED BLOOD CELLS IN PERIPH VEIN, PERC (09/24/16) Family History: States: Unknown Family Hx - Social History Hx Tobacco Use: No Hx Alcohol Use: No Hx Substance Use: No - Immunization History Hx Tetanus Toxoid Vaccination: No Hx Influenza Vaccination: No Hx Pneumococcal Vaccination: No Review Of Systems Constitutional: Negative for: Fever, Chills, Sweats Cardiovascular: Negative for: Chest Pain, Palpitations, Edema Respiratory: Negative for: Cough, Shortness of Breath, Wheezing Gastrointestinal: Positive for: Nausea, Abdominal Pain. Negative for: Vomiting , Diarrhea, Constipation Genitourinary: Negative for: Dysuria, Frequency, Hematuria Musculoskeletal: Negative for: Neck Pain, Back Pain Skin: Negative for: Rash, Lesions, Jaundice Neurological: Negative for: Weakness, Numbness Physical Exam - Physical Exam Appears: In Acute Distress (moderate ), Other (pt unable to sit comfortably) Skin: Normal Color, Warm, Dry Head: Atraumatic, Normacephalic Eye(s): bilateral: Normal Inspection Throat: Normal Neck: Normal, Normal ROM, No Midline Cervical Tenderness Chest: Symmetrical, No Tenderness Cardiovascular: Rhythm Regular, No Murmur Respiratory: Normal Breath Sounds, No Accessory Muscle Use, No Rales, No Rhonchi , No Stridor, No Wheezing Gastrointestinal/Abdominal: Bowel Sounds (normal), Soft, Tenderness (+ epigastric and RUQ), No Organomegaly, No Mass, No Distention, No Guarding, No Rebound, No Hernia, Other (+surgical scars to the epigastric and LUQ) Back: Normal Inspection, CVA Tenderness (b/l R>L), No Vertebral Tenderness, No Decreased ROM, No Paraspinal Tenderness Extremity: Normal ROM, No Tenderness, No Deformity, No Swelling Neurological/Psych: Oriented x3, Normal Speech, Normal Cranial Nerves, Normal Motor, Normal Sensation ED Course And Treatment - Laboratory Results Result Diagrams: 11/03/16 08:16 11/03/16 08:16 Urine POC: Negative O2 Sat by Pulse Oximetry: 99 - CT Scan/US CT A/P w/o PO or IV contrast Other Rad Studies (CT/US): Read By Radiologist CT/US Interpretation: IMPRESSION: Limited visualization with prominence of the pancreatic head/ uncinate process of unclear significance ; underlying soft tissue mass cannot be excluded dedicated pancreatic protocol CT is recommended for further evaluation. Hepatomegaly. Cholecystectomy. Punctate nonobstructing left renal calculi. No right renal calculi appreciated on this study. No evidence of hydronephrosis. Additional findings as above. Medical Decision Making Medical Decision Makin yo F s/p gastric bypass, cholecystectomy and 4 c-sections, presents to the ER c/o sudden onset of nausea with sharp constant epigastric and R flank pain x2 day. Previous medical records reviewed : pt was seen and evaluated in this ED on for R sided abd pain s/p colonoscopy with Dr. Romo. Pt had a CT A/P which showed : No definite free air. Limited visualization with prominence of the pancreatic head/ uncinate process of unclear significance ; underlying soft tissue mass cannot be excluded dedicated pancreatic protocol CT is recommended for further evaluation. Hepatomegaly. Cholecystectomy. Punctate nonobstructing bilateral renal calculi. It was also noted during that visit that [facility] was reviewed and it revealed that the pt had 34 controlled Rx's from 7 prescribers, suspicious for drug seeking behavior. Differential diagnosis include dyspepsia, renal colic, pancreatitis. Plan: - labs - IV - NS fluids - pepcid / zofran / toradol - UA - Pt placed in ED obs ED OBSERVATION Date of observation admission: 11/03/16 Time of observation admission: 08:00 - Observation admission statement Patient is being placed in observation because:: R flank pain, abdominal pain and nausea - Goals of Observation Goals of observation are:: To monitor pt's signs and symptoms. - Progress Note Progress Note: 11/03/16 09:00 On reevaluation, patient feeling significantly better but still c/o nausea. Gave dose of reglan. Labs reviewed, hemoglobin 10, hematocrit 35, potassium 3.3 , gave dose of potassium. Blood noted in the urine, urine HCG unable to obtain so added beta HCG (result 0). Pt went for CT. 11/03/16 12:00 Pt layng in bed in no acute distress, reports improvement of symptoms but still continues to c/o mild nausea with epigastric discomfort. On exam, abdomen remains soft with no tenderness, no guardind and no rebound. No CVA tenderness. Pt medicated with IV zofran and PO bentyl. CT results reviewed, which showed limited visualization with prominence of the pancreatic head/ uncinate process of unclear significance ; underlying soft tissue mass cannot be excluded dedicated pancreatic protocol CT is recommended for further evaluation. Hepatomegaly. Cholecystectomy. Punctate nonobstructing left renal calculi. No right renal calculi appreciated on this study. No evidence of hydronephrosis. The CT results are unchanged from prior recent CT studies done. 11/03/16 14:43 On third re-evaluation, pt is resting comfortably in bed in no acute distress. Reports improvement of abdominal pain and nausea. VSS. Neck: Supple ENT: no acute findings. Lungs: CTA B/L, BS equal B/L. CVS: (+)S1S2, reg. Abd: benign, (-) guarding, (-) rebound. Back: (-) CVA Tenderness. Pt informed of lab and CT findings, advised to f/u with the clinic in 2 days without fail for further evaluation. Return to the ER at any time for any new or worsening symptoms. 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
[2016-11-03 08:23] LABS: BASO % 0.5 % (0.0-2.0); EOS % 0.1 % (0.0-4.0); LYMPH # 1.5 K/uL (1.0-4.3); LYMPH % 15.3 % (20.0-40.0); MEAN CELL VOLUME 66.8 fL (81.0-99.0); MEAN CORPUSCULAR HEMOGLOBIN 20.5 pg (27.0-31.0); MEAN CORPUSCULAR HGB CONC 30.7 g/dL (33.0-37.0); MEAN PLATELET VOLUME 8.6 fL (7.2-11.7); MONO # 0.6 K/uL (0.0-0.8); MONO % 6.1 % (0.0-10.0); RED CELL DISTRIBUTION WIDTH 30.6 % (11.5-14.5); WHITE BLOOD COUNT 9.9 K/uL (4.8-10.8)
[2016-11-03 08:37] LABS: CHLORIDE 100 mmol/L (98-107)
[2016-11-03 08:38] LABS: SODIUM 142 mmol/L (132-148)
[2016-11-03 08:39] LABS: POTASSIUM 3.3 mmol/L (3.6-5.2)
[2016-11-03 08:41] LABS: ALB/GLOB RATIO 1.1 (1.0-2.1); ALKALINE PHOSPHATASE 117 U/L (38-126); ALT/SGPT 19 U/L (9-52); AST/SGOT 25 U/L (14-36); BILIRUBIN,TOTAL 2.3 mg/dL (0.2-1.3); BLOOD UREA NITROGEN 11 mg/dL (7-17); CARBON DIOXIDE 22 mmol/L (22-30); GFR AFRICAN-AMERICAN > 60; GLUCOSE,RANDOM 110 mg/dL (65-105); TOTAL PROTEIN 8.4 g/dL (6.3-8.3)
[2016-11-03 08:42] LABS: CALCIUM 9.5 mg/dl (8.6-10.4)
[2016-11-03 08:54] LABS: RBC URINE 10 /hpf (0-3); URINE BILIRUBIN NEGATIVE (NEGATIVE); URINE BLOOD 2+ (NEGATIVE); URINE COLOR Yellow (YELLOW); URINE GLUCOSE (UA) NORMAL (Normal); URINE KETONE 2+ mg/dL (NEGATIVE); URINE LEUKOCYTE ESTERASE NEG Leu/uL (Negative); URINE PROTEIN 1+ mg/dL (NEGATIVE); URINE UROBILINOGEN NORMAL mg/dL (0.2-1.0); WBC URINE 1 /hpf (0-5)
[2016-11-03] MEDS ORDERED: Potassium Chloride 20 mEq/15 ml LIQ UD PO STA (08:54)
[2016-11-03] MEDS ORDERED: Potassium Chloride 20 mEq ER Tab PO ONE (08:59)
[2016-11-03] MEDS ORDERED: Potassium Chloride 20 mEq/15 ml LIQ UD ONE (12:30)
--- NOTE | 2016-11-03 13:16 | CT ---
PROCEDURE: CT Abdomen and Pelvis without Oral or IV contrast. HISTORY: R flank pain COMPARISON: CT abdomen and pelvis without oral or IV contrast performed 10/08/16 TECHNIQUE: Contiguous axial images of the abdomen and pelvis. No oral or IV contrast administered. Coronal and Sagittal reformats generated and reviewed. Radiation dose: Total exam DLP = 265.97 mGy-cm. This CT exam was performed using one or more of the following dose reduction techniques: Automated exposure control, adjustment of the mA and/or kV according to patient size, and/or use of iterative reconstruction technique. FINDINGS: There is limited evaluation of the solid organs without the administration of IV contrast. Evaluation also limited due to paucity of intra-abdominal and intrapelvic fat. LOWER THORAX: No visible consolidation, pleural effusion, or pneumothorax. Small to moderate hiatal hernia. LIVER: Hepatomegaly. GALLBLADDER AND BILE DUCTS: Cholecystectomy. PANCREAS: Limited visualization with prominence of the pancreatic head/ uncinate process of unclear significance ; underlying soft tissue mass cannot be excluded SPLEEN: Unremarkable unenhanced appearance. ADRENALS: Unremarkable unenhanced appearance. KIDNEYS AND URETERS: Nonobstructing left renal calculi. No hydronephrosis or obstructing renal calculus. BLADDER: Under distended urinary bladder appears otherwise unremarkable. REPRODUCTIVE: Uterus is present. APPENDIX: The appendix is not well visualized. No secondary signs of acute appendicitis. BOWEL: Postsurgical gastric changes. Stomach is nondistended precluding adequate evaluation. Lack of oral contrast limits evaluation for bowel pathology. The bowel loops appear within normal limits of caliber without evidence of intestinal obstruction. PERITONEUM: No significant free fluid. No definite free air. LYMPH NODES: No bulky lymphadenopathy identified. VASCULATURE: Grossly unremarkable unenhanced appearance. BONES: No acute osseous abnormality is detected. OTHER FINDINGS: None. IMPRESSION: Limited visualization with prominence of the pancreatic head/ uncinate process of unclear significance ; underlying soft tissue mass cannot be excluded dedicated pancreatic protocol CT is recommended for further evaluation. Hepatomegaly. Cholecystectomy. Punctate nonobstructing left renal calculi. No right renal calculi appreciated on this study. No evidence of hydronephrosis. Additional findings as above.
[2016-11-03] MEDS ORDERED: Belladonna-Phenobarbital PO STA (13:58)
[2016-11-03] MEDS ORDERED: Belladonna-Phenobarbital ONE (14:28)
[2016-11-03 14:38] VITALS: BP 155/83; PULSE 68; RESP 18; TEMP 99
[2016-11-03 14:43] VITALS: O2SAT 99
== END 2016-11-03 14:11 | disposition home or self-care (01) ==
LOC: C.ER 07:31 → C.9OBSV 08:00
PROVIDERS: ADMIT Emergency Medicine; ATTEND Emergency Medicine
DX: R10.9 Unspecified abdominal pain (principal); Z87.11 Personal history of peptic ulcer disease; Z98.84 Bariatric surgery status
CPT/HCPCS: 74176; 80053; 81001; 83690; 84702; 85025; 87086; 96361; 96374; 96375; 96376; 99285; G0378; J1885; J2405; J2765; J7040